=== PATIENT | male | born 1970 | race Caucasian/White ===

== ENCOUNTER 2020-03-21 13:49 | Emergency (ER) | payer SELFPAY ==
[2020-03-21] MEDS ORDERED: HYDROCODONE/ACETAMINOPHEN 5-325 MG TABLET PO ONE (14:42)
[2020-03-21] MEDS ORDERED: AMOXICILLIN TR/POT CLAVULANATE 875-125 MG TAB PO ONE (14:42)
--- NOTE | 2020-03-21 14:46 | ER Document Report ---
ED General - General Stated Complaint: CAT BITE Time Seen by Provider: 03/21/20 14:38 Mode of Arrival: Ambulatory Information source: Patient Notes: Patient is a 49-year-old male coming in today with chief complaint of cat bite to his left hand. He states that he was trying to keep his kitten from getting into a fight with another cat. He was subsequently bitten to the dorsal aspect of his left hand last night. Today having pain that is starting to radiate up into the wrist. He states his last tetanus has been within 5 years. His cat is vaccinated and there is no concern for rabies prophylaxis. - Related Data Allergies/Adverse Reactions: No Known Allergies Allergy (Verified 03/21/20 14:52) Past Medical History - Social History Smoking Status: Unknown if Ever Smoked Family History: Reviewed & Not Pertinent Review of Systems - Review of Systems Notes: Constitutional: No fevers. No chills. EENT: No eye redness. No eye pain. No ear pain. No sore throat. Cardiovascular: No chest pain. No palpitations. Respiratory: No cough. No shortness of breath. No respiratory distress. Gastrointestinal: No abdominal pain. No nausea, vomiting, or diarrhea. Genitourinary: Atraumatic. No lesions. No pain. No discharge. Musculoskeletal: Atraumatic. No swelling. No deformities. Puncture wounds to left hand. Cellulitis left hand Skin: No rash or lesions. Lymphatic: No swollen lymph nodes. Neurologic: No headache. No syncope. Psychiatric: No suicidal or homicidal ideation. Physical Exam - Vital signs Vitals: Temp Pulse Resp BP Pulse Ox 98.8 F 94 16 146/103 H 98 03/21/20 13:54 03/21/20 13:54 03/21/20 13:54 03/21/20 13:54 03/21/20 13:54 - Notes Notes: General: Well-developed, well-nourished. In no acute distress. Non-toxic appearing. Cardiac: Well-perfused. Regular rate and rhythm. No murmurs, rubs, or gallops. Pulmonary: No respiratory distress. No cyanosis. Bilateral lung fiels are clear to auscultation. Abdominal: Non-distended. Non-rigid. Bowels sounds are present in all four quadrants. No guarding or rebound. HEENT: Head is atraumatic. Conjunctivae not reddened. No tearing. PERRL. EOMI. Orbits atraumatic. No periorbital swelling or erythema. Oropharynx is without erythema, swelling, or exudates. Neck: Supple. No adenopathy. No meningismus. Dermatologic: Warm with good turgor. No rash. Atraumatic. Chest: Atraumatic. No chest wall tenderness to palpation. Musculoskeletal: Moves all extremities well. No range of motion deficits. no muscular or joint tenderness. No paraspinal muscle tenderness. no midline spinal tenderness or step-off. 3-4 puncture wounds noted to the dorsal aspect of the left hand at the level over the first metacarpal. There is local redness and warmth. No lymphangitis. Mild tenderness to palpation. No bleeding or purulent drainage. Good range of motion of the hand and wrist. Genitourinary: Examination deferred Neurologic: No gross neurologic deficits. Psychiatric: Normal mood. Course - Re-evaluation Re-evalutation: 03/21/20 15:29 X-ray findings reviewed. No acute disease. Patient is up-to-date on tetanus. We will start him on Augmentin twice a day for 10 days. [employer] pack #6 to go home with. Naproxen sodium prescription. Will recommend follow-up [facility] or return here - Vital Signs Vital signs: Temp Pulse Resp BP Pulse Ox 98.8 F 94 16 146/103 H 98 03/21/20 13:54 03/21/20 13:54 03/21/20 13:54 03/21/20 13:54 03/21/20 13:54 - Diagnostic Test Radiology reviewed: Reports reviewed Discharge - Discharge Clinical Impression: Elevated blood pressure reading Cat bite of hand Qualifiers: Encounter type: initial encounter Laterality: left Qualified Code(s): S61.452A - Open bite of left hand, initial encounter; W55.01XA - Bitten by cat, initial encounter Cellulitis Qualifiers: Site of cellulitis: extremity Site of cellulitis of extremity: upper extremity Laterality: left Qualified Code(s): L03.114 - Cellulitis of left upper limb Condition: Good Disposition: HOME, SELF-CARE Instructions: Animal Bites ([facility]), Cellulitis ([facility]) Additional Instructions: Take antibiotics twice a day as directed on bottle. Naproxen sodium twice a day for inflammation and swelling. Keep hand elevated to reduce swelling. You will need to have this wound rechecked in 2 days either at the [facility] or you may return to the emergency department if you notice that it is getting worse instead of better. Prescriptions: Amoxicillin/Potassium Clav [Augmentin 875-125 Tablet] 1 tab PO BID #20 tab Naproxen 500 mg PO BID 10 Days #20 tablet Forms: Elevated Blood Pressure
--- NOTE | 2020-03-21 15:28 | RADIOLOGY REPORT (SQ) ---
EXAM DESCRIPTION: HAND LEFT 3 VIEWS IMAGES COMPLETED DATE/TIME: 03/21/2020 3:02 pm REASON FOR STUDY: cat bite r/o FB COMPARISON: None. EXAM PARAMETERS: NUMBER OF VIEWS: Three views. TECHNIQUE: AP, lateral and oblique radiographic images acquired of the left hand. LIMITATIONS: None. FINDINGS: MINERALIZATION: Normal. BONES: No acute fracture or dislocation. No worrisome bone lesions. JOINTS: No effusions. SOFT TISSUES: No soft tissue swelling. No foreign body. OTHER: No other significant finding. IMPRESSION: NEGATIVE STUDY OF THE LEFT HAND. NO RADIOGRAPHIC EVIDENCE OF ACUTE INJURY. TECHNICAL DOCUMENTATION: JOB ID: [id number] 2010 [employer]- All Rights Reserved Reading location - IP/workstation name: [email or web address]
[2020-03-21] MEDS ORDERED: HYDROCODONE/ACETAMINOPHEN 5-325 MG (6 TAB/ER DISP) PO PRN (15:34)
[2020-03-21 17:36] VITALS: BP 157/116
== END 2020-03-21 15:55 | disposition home or self-care (01) ==
LOC: ER 13:49
DX: S61.452A Open bite of left hand, initial encounter (principal); W55.01XA Bitten by cat, initial encounter; L03.114 Cellulitis of left upper limb; R03.0 Elevated blood-pressure reading, without diagnosis of hypertension
CPT/HCPCS: 99283